=== PATIENT | female | born 2000 | race Caucasian/White ===

== ENCOUNTER → 2020-08-24 | Outpatient (CLI) | payer OTHER | LOC: M LAB 11:15 | PROVIDERS: ATTEND Physician Assistant Medical | DX: Z34.80 Encounter for supervision of other normal pregnancy, unspecified trimester (principal); Z3A.00 Weeks of gestation of pregnancy not specified ==

== ENCOUNTER 2020-09-09 21:18 | Emergency (ER) | payer OTHER ==
[~2020-09-09] VITALS: Ht 160 cm; Wt 74.7 kg
[2020-09-09 21:54] LABS: BASO # 0.1 10^3/uL (0.0-0.2); BASO % 0.6 % (0.0-1.0); EOS # 0.1 10^3/uL (0.0-0.5); EOS % 0.9 % (0.0-3.0); HEMATOCRIT 43.3 % (36.0-47.0); HEMOGLOBIN 14.8 g/dl (12.0-15.5); LYMPH # 1.9 10^3/uL (1.5-5.0); LYMPH % 24.7 % (24.0-44.0); MEAN CORPUSCULAR HGB CONC 34.2 g/dl (32.0-36.5); MEAN CORPUSCULAR VOLUME 87.8 fl (80.0-96.0); MONO # 0.6 10^3/uL (0.0-0.8); MONO % 8.2 % (0.0-5.0); NEUTROPHILS # 5.1 10^3/uL (1.5-8.5); NEUTROPHILS % 65.3 % (36.0-66.0); PLATELET COUNT, AUTOMATED 289 10^3/uL (150-450); RED BLOOD COUNT 4.93 10^6/uL (4.00-5.40); WHITE BLOOD COUNT 7.8 10^3/uL (4.0-10.0)
[2020-09-09 22:33] LABS: BLOOD UREA NITROGEN 8 MG/DL (7-18); CALCIUM LEVEL 9.2 MG/DL (8.5-10.1); CARBON DIOXIDE LEVEL 28 MEQ/L (21-32); CHLORIDE LEVEL 106 MEQ/L (98-107); CREATININE FOR GFR 0.71 MG/DL (0.55-1.30); GLUCOSE, FASTING 77 MG/DL (70-100); HCG, SERUM QUANTITATIVE 6568 MIU/ML; POTASSIUM SERUM 3.5 MEQ/L (3.5-5.1); SODIUM LEVEL 140 MEQ/L (136-145)
--- NOTE | 2020-09-09 23:49 | REPVR ---
PROCEDURE INFORMATION: Exam: US First Trimester, Transabdominal Exam date and time: 09/09/2020 11:17 PM Age: 20 years old Clinical indication: complicated by abdominal or pelvic pain; Lower; First trimester; Gestational age or lmp: 07/27/20; ; Additional info: Abdominal cramping, + preg TECHNIQUE: Imaging protocol: Real-time transabdominal obstetrical ultrasound of the maternal pelvis and a first trimester , less than 14 weeks 0 days, with image documentation. COMPARISON: No relevant prior studies available. FINDINGS: Gestation: At the upper right side of the endometrium is a intrauterine gestational sac. There is good decidual reaction. [place] rump length consistent with 6 weeks 1 day. There is cardiac activity at 122 bpm. This is very early intrauterine gestation . All parameters cannot be assessed therefore a complete survey should be performed at 18-20 weeks gestation. Gestational age (AUA): Correlation with hCG levels would also be important and if there is any discrepancy serial ultrasound should be considered . Right adnexa: The right ovary measures 3.7 cm in length by 2.7 cm in thickness. There is a round echogenic focus probably a hemorrhagic cyst or hemorrhagic corpus luteum. There is vascular flow the right ovary. Left adnexa: The left ovary measures 3.3 cm in length by 1.9 cm in thickness and there is vascular flow. Intraperitoneal space: Trace free fluid. Urinary bladder: Normal appearing urinary bladder. IMPRESSION: 1. Intrauterine gestational sac within the endometrium high in position and to the right. 2. pole estimated at 6 weeks 0 days with cardiac activity 122 bpm. Please see the above comments. Electronically signed by: Kaiden Hirsch On 09/09/2020 23:49:46 PM
[2020-09-10 00:21] VITALS: BP 123/66
== END 2020-09-10 00:28 | disposition home or self-care (01) ==
LOC: M ED 21:18
DX: O99.891 Other specified diseases and conditions complicating pregnancy (principal); O26.891 Other specified pregnancy related conditions, first trimester; Z3A.01 Less than 8 weeks gestation of pregnancy

== ENCOUNTER 2021-03-18 18:42 | Outpatient (CLI) | payer OTHER ==
[~2021-03-18] VITALS: Ht 157.5 cm; Wt 82.4 kg
[2021-03-18 19:18] VITALS: BP 125/65
[2021-03-18] MEDS ORDERED: PRENTAB9 PO (19:20)
[2021-03-18 20:49] VITALS: BP 107/56
--- NOTE | 2021-03-18 21:00 | IPNPDOC ---
Text Note Date of Service The patient was seen on 03/18/21. NOTE 20 yo at 33+3 weeks gestation presented to L&D with the complaint of pelvic cramping and pressure. She reports this started this AM and has been persisting throughout the day. She had intercourse with her this afternoon and it continued after this. She denies any vaginal bleeding, discharge, or leakage of fluid. She endorses movement. She also denies any fevers/chills, SOB, dysuria, n/v, or constipation. Chaperoned by L&D RN Vitals - VSS, afebrile, normotensive, non tachycardic General - AAOX3, sitting up in bed, pleasant and conversant, NAD Abdomen - Gravid uterus, no fundal tenderness Cervix - Cl/thick/high, posterior to digital exam FHR tracing - Cat I with moderate variability, +accels, no decels. Uterine irritability on toco. Bedside TVUS ( anatomy not assessed): Viable SIUP in cephalic presentation. Cervical length >4cm with no dynamic changes or funneling. Labs: UA - unremarkable Cervix closed and cervical length >4cm on TVUS. Reassuring status. UA clean. Low suspicion of labor. Offered repeat cervical exam in 1-2 hours but Ms. Bynum declined and opted to return home. Discharged with return precautions. All questions answered. 45 minutes of patient care DO HOPE Hamilton CHRISTOPHER J. DO Mar 18, 2021 21:00
== END 2021-03-18 20:57 | disposition home or self-care (01) ==
LOC: M LDO 18:42
PROVIDERS: ATTEND Obstetrics & Gynecology
DX: O26.893 Other specified pregnancy related conditions, third trimester (principal); R25.2 Cramp and spasm; Z3A.33 33 weeks gestation of pregnancy
CPT/HCPCS: 59025; 76815; 81001; G0378; G0463

== ENCOUNTER 2021-05-10 14:52 | Inpatient (IN) | payer OTHER ==
[~2021-05-10] VITALS: Ht 160 cm; Wt 85.9 kg
[~2021-05-10 14:52] MED LIST: PRENTAB9 PO
[2021-05-10] MEDS ORDERED: HOME MED LIST COMPLETE! XX SCH (15:05)
[2021-05-10 15:11] VITALS: BP 117/65
[2021-05-10] MEDS ORDERED: LIDOCAINE 1% MDV 20ML VIAL INFIL PRN (15:55)
[2021-05-10] MEDS ORDERED: OXYTOCIN DRIP 30 UNITS in IV 1 EA IV PRN (15:55)
[2021-05-10 16:41] LABS: HEMATOCRIT 42.7 % (36.0-47.0); HEMOGLOBIN 14.3 g/dl (12.0-15.5); MEAN CORPUSCULAR HEMOGLOBIN 29.7 pg (27.0-33.0); MEAN CORPUSCULAR HGB CONC 33.5 g/dl (32.0-36.5); MEAN CORPUSCULAR VOLUME 88.8 fl (80.0-96.0); PLATELET COUNT, AUTOMATED 182 10^3/uL (150-450); RED BLOOD COUNT 4.81 10^6/uL (4.00-5.40); WHITE BLOOD COUNT 9.5 10^3/uL (4.0-10.0)
[2021-05-10 17:29] VITALS: BP 117/72
--- NOTE | 2021-05-10 18:39 | HPEPDOC ---
Obstetrical History & Physical General Date of Admission May 10, 2021 at 14:52 History of Present Illness Ms. Bynum is a 21yo at 41+0 presenting for induction of labor for late term. She denied vb, lof, decreased fm, contractions. she denied a 12 point ROS. 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 history Past Medical History Medical History asthma, anxiety, depression Surgical History: Denies/None Family History Significant Family History: No pertinent family hx Social History Marital Status: Family situation: Spouse/partner home Psychosocial History: No pertinent psych hx * Smoker: non-smoker Alcohol: Denies Drugs: denies Imunizations Tdap status: current Influenza Status: current Allergies Coded Allergies: No Known Allergies (Unverified , 08/21/20) Medications Scheduled No.137/Iron/Folic Acd ( Vitamin Tablet) 1 Each Tablet, 1 TAB PO DAILY Physical Examination Physical Examination GENERAL: Alert and oriented times three. BREAST: . ABDOMEN: Gravid and non-tender to touch. FETUS: Is vertex (VTX) by sterile vaginal examination (SVE), fetus is vertex (VTX) by US HEART RATE: Regular rate and rhythm. LUNGS: Clear to auscultation (CTA). EXTREMITIES: No edema. No clonus. Ceph by US. Vital Signs/I&O Vital Signs Date Time Temp Pulse Resp B/P (MAP) Pulse Ox O2 Delivery O2 Flow Rate FiO2 05/10/21 17:29 76 117/72 (87) 05/10/21 15:11 97.9 18 Room Air Laboratory Data 24H LABS Laboratory Tests 2 05/10/21 15:02: Serology Scanned Report Hepatitis B Testing 05/10/21 16:22: Nucleated Red Blood Cells % (auto) 0.0, Syphilis Serology NONREACTIVE CBC/BMP Laboratory Tests 05/10/21 16:22 Urine Culture: Contaminated Pertinent Laboratoy Data Blood Type: O+ RBC Antibody Screen: Negative HIV: Negative Hepatitis B: Negative Rapid Plasma Reagin: Nonreactive Rubella: Immune Varicella: Immune Chlamydia/Gonorrhea: Negative Group B Streptococcus: Negative Cystic Fibrosis: Negative Glucose Tolerance Test: 104 Anatomy Ultrasound Placenta Location: Posterior Estimated Weight (grams): 3500 Vaginal Examination Dilation: 1cm Effacement: 50% Station: -3 Cervical Consistency: Medium Cervical Position: Posterior Presentation: Cephalic presentation Assessment Heart Rate (FHR): 130 Variability: Moderate Accelerations: Positive Decelerations: None Tocometer Contractions: Yes Frequency: regular Multi-drug resistant Organism: No history of MDRO Assessment/Plan Assessment Ms. Bynum is a 21yo at 41+0 presenting for induction of labor for late term. VS normal. CAT I NST reactive. SVE 1/T/H. DLFB placed. APC 1. anxiety/depression 2. asthma Rh pos, GBS neg, ceph by US, EFW 3500, placenta posterior Plan Admit and orient. 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 Diet: clears Group B Streptococcus (GBS) [negative]. Labs and intravenous (IV) per unit protocol. Counseled on Pitocin and induction of labor (IOL). Lactated Ringers (LR): PRN Anticipate [normal delivery ()]. C-S as appropriate. MARY ALLISON DO May 10, 2021 18:39
[2021-05-11] VITALS (37 sets, daily range): BP systolic 93–130; BP diastolic 53–71
[2021-05-11] MEDS: OXYTOCIN DRIP 30 UNITS in IV 1 EA IV SCH (08:36)
[2021-05-11] MEDS: LR 1,000 ML IV SCH ×2 (08:36→16:06)
[2021-05-11] MEDS ORDERED: OXYTOCIN INJ 10 UNITS/ML VIAL (J2590) IV ONE (09:30)
[2021-05-11] MEDS ORDERED: FENTANYL 2MCG/ML ROPIVACAINE 0.2% IN 0.9% NACL 100ML IVBAG As Ordered ONE (19:57)
[2021-05-11] MEDS ORDERED: EPIDURAL COMMENT XX SCH (20:40)
[2021-05-11] MEDS ORDERED: ePHEDrine SULFATE 25 MG/5 ML(5MG/ML) SYRINGE IV PRN (20:40)
[2021-05-11] MEDS ORDERED: ONDANSETRON 4MG/2ML VIAL IV PRN (20:40)
[2021-05-11] MEDS ORDERED: LACTATED RINGER'S 1000 ML IV PRN (20:40)
[2021-05-11] MEDS ORDERED: NALOXONE INJ 0.4MG/1ML VIAL (J2310 PER 1MG) IV PRN (20:40)
[2021-05-11] MEDS ORDERED: diphenhydrAMINE 50MG/ML VIAL (J1200) IV PRN (20:40)
[2021-05-11] MEDS ORDERED: EPIDURAL/PCA KEYS XX PRN (20:40)
[2021-05-11] MEDS ORDERED: REFRIGERATOR IV KEYS XX PRN (20:40)
[2021-05-11] MEDS: FENTANYL/ROPIVACAINE/NACL BAG 100 ML EPIDURAL SCH (21:33)
[2021-05-12] VITALS (25 sets, daily range): BP systolic 89–123; BP diastolic 52–71
[2021-05-12 06:18] LABS: CORD GAS ABE A -7.1; CORD GAS ABE V -4.8; CORD GAS HCO3 A 21.8 MEQ/L; CORD GAS HCO3 V 19.9 MEQ/L; CORD GAS O2 SAT A 44.5 %; CORD GAS O2 SAT V 80.8 %; CORD GAS PCO2 A 56.9 mmHg; CORD GAS PCO2 V 36.6 mmHg; CORD GAS PH A 7.201 UNITS; CORD GAS PH V 7.354 UNITS; CORD GAS PO2 A 22.9 mmHg; CORD GAS PO2 V 36.4 mmHg; CORD GAS SBC A 17.6 MEQ/L; CORD GAS SBC V 20.1 MEQ/L; CORD GAS TCO2 A 23.5 MEQ/L; CORD GAS TCO2 V 21.1 MEQ/L
[2021-05-12] MEDS ORDERED: METHYLERGONOVINE MALEATE 0.2 MG/ML VIAL (J2210) IM STA (06:19)
[2021-05-12] MEDS ORDERED: FENTANYL 2MCG/ML ROPIVACAINE 0.2% IN 0.9% NACL 100ML IVBAG As Ordered ONE (06:31)
[2021-05-12] MEDS: FENTANYL/ROPIVACAINE/NACL BAG 100 ML EPIDURAL SCH (06:40)
[2021-05-12] MEDS: OXYTOCIN DRIP 30 UNITS in IV 1 EA IV SCH (06:54)
[2021-05-12] MEDS ORDERED: OXYTOCIN 30 UNITS IN 0.9% NaCl 500ML IV BAG (J2590) ONE (07:17)
[2021-05-12] MEDS ORDERED: METHYLERGONOVINE MALEATE 0.2 MG/ML VIAL (J2210) ONE (07:17)
[2021-05-12] MEDS ORDERED: LR 1,000 ML IV SCH (07:20)
[2021-05-12] MEDS ORDERED: DIBUCAINE 1% OINTMENT 30GM TOP PRN (07:20)
[2021-05-12] MEDS ORDERED: ANUSOL HC CREAM 30GM TOP PRN (07:20)
[2021-05-12] MEDS ORDERED: ACETAMINOPHEN TAB 650MG DOSE (2X325MG) PO PRN (07:20)
[2021-05-12] MEDS ORDERED: DOCUSATE SODIUM 100MG CAPSULE PO PRN (07:20)
[2021-05-12] MEDS ORDERED: OXYTOCIN DRIP 30 UNITS in IV 1 EA IV ONE (07:20)
[2021-05-12] MEDS ORDERED: RHOGAM 300 MCG (1500 IU) INJ (J2790) IM SCH (07:20)
[2021-05-12] MEDS ORDERED: ACETAMINOPHEN 500 MG TAB PO PRN (07:20)
[2021-05-12] MEDS ORDERED: MOM 30ML SUSPENSION UDC PO PRN (07:20)
[2021-05-12] MEDS ORDERED: METHYLERGONOVINE MALEATE 0.2 MG TAB PO PRN (07:20)
[2021-05-12] MEDS ORDERED: IBUPROFEN 600MG TAB PO PRN (07:20)
[2021-05-12] MEDS ORDERED: MEASLES,MUMPS,RUBELLA VACCINE INJ (MMR-II) (90707) SC SCH (07:20)
[2021-05-12 07:34] LABS: HEMATOCRIT 39.6 % (36.0-47.0); HEMOGLOBIN 13.5 g/dl (12.0-15.5); MEAN CORPUSCULAR HGB CONC 34.1 g/dl (32.0-36.5); PLATELET COUNT, AUTOMATED 173 10^3/uL (150-450); WHITE BLOOD COUNT 21.5 10^3/uL (4.0-10.0)
[2021-05-12] MEDS: PRENATAL VITAMINS CHEWABLE TABLET PO SCH (09:58)
--- NOTE | 2021-05-12 15:33 | DN ---
DELIVERY NOTE DATE OF DELIVERY: 05/12/2021 DESCRIPTION OF DELIVERY: This lady is a 1, now para 1, was admitted for induction of labor at late term at 41 weeks of gestation. She had a prolonged first and second stage, epidural in place, delivered spontaneously a livebirth male infant weighing 9 lb, 5 oz, 4210 gm, Apgars of 9 and 9 at 1 and 5 minutes respectively. Cord x1 loose and terminal meconium. Arterial pH 7.20, base excess minus 7.1, venous pH 7.35, base excess minus 4.8. The placenta delivered spontaneously thereafter with some delay, three-vessels, membranes and tissues intact. She had an atonic uterus, significant bleed, required Methergine 0.2, misoprostol 1000 mg per rectum and IV Pitocin at 999 per hour plus 5 units of Pitocin IV push at the anterior shoulder. We had significant difficulty in establishing the location of the bleed and because of her lacerations in the vagina especially on the left side and also the first degree tear requiring the vaginal tray and Dr. Montenegro for visualization and suction. We eventually were able to control the bleeding by repairing the lateral vaginal wall and first degree tear with a 2-0 Vicryl on J339. The uterus contracted well down under the misoprostol, the IV Pitocin and the IM Methergine. The cervix itself was normal. The sphincter was tight and closed and the anterior and posterior doyle were good. The total blood loss that was counted was approximately 1100 plus what was in the bucket giving her a total estimate of 1500 to 1800 mL. We initiated a second IV line in case it was necessary and a [place] catheter was left in. She had significant swelling of her labia and the vagina secondary to prolonged pushing of two hours. In summary, we have a late term gestation, had a spontaneous vaginal delivery with hemorrhage controlled with medication. The patient and baby tolerating procedure well. [facility]
[2021-05-12] MEDS: SLF 3 ML SYR IV SCH (22:30)
[2021-05-13] MEDS: SLF 3 ML SYR IV SCH (06:19)
[2021-05-13 06:21] VITALS: BP 115/61
[2021-05-13 06:36] LABS: HEMATOCRIT 29.5 % (36.0-47.0); MEAN CORPUSCULAR HEMOGLOBIN 29.9 pg (27.0-33.0); MEAN CORPUSCULAR HGB CONC 33.9 g/dl (32.0-36.5); MEAN CORPUSCULAR VOLUME 88.3 fl (80.0-96.0); PLATELET COUNT, AUTOMATED 145 10^3/uL (150-450); RED BLOOD COUNT 3.34 10^6/uL (4.00-5.40); WHITE BLOOD COUNT 12.9 10^3/uL (4.0-10.0)
--- NOTE | 2021-05-13 08:36 | IPN ---
PROGRESS NOTE DATE: 05/13/2021 SUBJECTIVE: This lady is a 21-year-old 1, now para 1, admitted for induction of labor at 41 weeks of gestation. She had an epidural placed, spontaneous vaginal delivery male infant, 9 pounds 5 ounces, 4210 gm, Apgars of 9 and 9 at 1 and 5 minutes respectively. Cord x1 with terminal meconium. Arterial pH 7.20, base excess -7.1, venous pH 7.35, base excess -4.8. She had hemorrhage of between 1100 and 1800 mL, did not require blood transfusion. Did start a second IV line, had serial lab work done. Admitting hemoglobin was 14.3, hematocrit 42.7, platelets 182. day one hemoglobin 10.0, hematocrit 29.5, platelets 145 and the patient was asymptomatic. OBJECTIVE: Vital signs presently: Blood pressure 115/61, respirations 18, pulse 82, temp 97.9. The rest of the exam is unremarkable. Normocephalic, atraumatic. Neck full range of motion. Pupils equal and reactive to light. Distal pulse symmetrical. No evidence of DVT, PE or superficial phlebitis. Chest is clear bilaterally to bases, no wheezes, rhonchi. No CVA tenderness. Abdomen is soft, four quadrant bowel sounds noted. Uterus 2 below. Lochia is moderate. Perineum is quite swollen still. However, the repair appears to be intact. No rashes, lesions or pruritus. No arthralgias, myalgias. No complaint of joint pain. No complaint of cough, wheeze, shortness of breath or dyspnea on exertion. No nausea, vomiting, diarrhea or constipation. No urgency or frequency, voiding quite well. Breast feeding is going well. PLAN: Keep the lady one more day because of her extensive repair. supervisor benzene refining her meds at [facility] when discharged tomorrow. 6 week checkup at [facility]. All questions were answered. 20 minute discussion.
--- NOTE | 2021-05-13 08:54 | IPN ---
PROGRESS NOTE DATE: 05/12/2021 This patient requested circumcision of her male . After discussing risks and benefits of the circumcision, the medical and non-medical indications, penile block and aftercare, she expressed understanding of penile block, aftercare and bleeding, signed the consent form. All questions were answered. 20 minute discussion. We await clearance by the direct mail marketer. cc: Judy DEGROOT
[2021-05-13] MEDS: PRENATAL VITAMINS CHEWABLE TABLET PO SCH (10:11)
[2021-05-13 17:38] VITALS: BP 122/64
[2021-05-14 06:00] VITALS: BP 116/58
[2021-05-14] MEDS ORDERED: IBUP-1022 PO (07:05)
[2021-05-14] MEDS ORDERED: ACET-683 PO (07:05)
--- NOTE | 2021-05-14 07:26 | DS.PDOC ---
Discharge Summary General Date of Admission May 10, 2021 at 2:52 pm Date of Discharge 05/14/2021 Discharge Summary PROCEDURES PERFORMED DURING STAY: vaginal delivery, repair of vaginal wall laceration, repair of 1st degree midline laceration ADMITTING DIAGNOSES: 1. Induction of labor at late term DISCHARGE DIAGNOSES: 1. 2. mACROSMIA 3. Postpatum hemorrhage COMPLICATIONS/CHIEF COMPLAINT: Induction. HISTORY OF PRESENT ILLNESS: 21 yo g1 @ 41 weeks admitted for induction of labor at late term. HOSPITAL COURSE: 21-year-old 1, now para 1, admitted for induction of labor at 41 weeks of gestation. She had an epidural placed, spontaneous vaginal delivery male infant, 9 pounds 5 ounces, 4210 gm, Apgars of 9 and 9 at 1 and 5 minutes respectively. Cord x1 with terminal meconium. Arterial pH 7.20, base excess -7.1, venous pH 7.35, base excess -4.8. She had hemorrhage of between 1100 and 1800 mL, did not require blood transfusion. Did start a second IV line, had serial lab work done. Admitting hemoglobin was 14.3, hematocrit 42.7, platelets 182. day one hemoglobin 10.0, hematocrit 29.5, platelets 145 and the patient was asymptomatic. at time of discharge, patient was ambulating, voiding without issues. she had no s/s of anemia. she was bonding well with baby DISCHARGE MEDICATIONS: Please see below. ALLERGIES: Please see below. PHYSICAL EXAMINATION ON DISCHARGE: VITAL SIGNS: Please see below. GENERAL: well appearing CARDIOVASCULAR EXAMINATION:regular rate and rhythm RESPIRATORY EXAMINATION: normal work of breathing ABDOMINAL EXAMINATION: appropriately tender, Fundus at u-1 EXTREMITIES: grossly normal. no ray sign LABORATORY DATA: Please see below. IMAGING: n/a PROGNOSIS: excellent ACTIVITY: As tolerated, pelvic rest for 6 weeks . DIET: regular DISCHARGE PLAN: discharge DISPOSITION: .home DISCHARGE INSTRUCTIONS: 1. Given by nursing ITEMS TO FOLLOWUP ON ON OUTPATIENT: 1. 6 weeks PP DISCHARGE CONDITION: Stable. TIME SPENT ON DISCHARGE: 60minutes. Vital Signs/I&Os Vital Signs Date Time Temp Pulse Resp B/P (MAP) Pulse Ox O2 Delivery O2 Flow Rate FiO2 05/14/21 06:00 98.2 86 16 116/58 (77) 98 Room Air I&O- Last 24 Hours up to 6 AM 05/14/21 06:00 Intake Total 800 ml Balance 800 ml Discharge Medications Scheduled PRN Acetaminophen (Acetaminophen) 500 Mg Tablet, 1,000 MG PO Q6HP PRN for PAIN LEVEL 6-10 Ibuprofen (Ibuprofen) 600 Mg Tablet, 600 MG PO Q6HP PRN for PAIN LEVEL 1-5 Allergies Coded Allergies: No Known Allergies (Unverified , 08/21/20) JUAN BOND MD May 14, 2021 07:09
[2021-05-14] MEDS: PRENATAL VITAMINS CHEWABLE TABLET PO SCH (09:00)
== END 2021-05-14 11:20 | disposition home or self-care (01) | DRG 806 ==
LOC: M LDI 14:52 → M OBS 05-12 10:00
PROVIDERS: ADMIT Obstetrics & Gynecology; ATTEND Obstetrics & Gynecology
PROC: 3E033VJ Introduction of Other Hormone into Peripheral Vein, Percutaneous Approach (ICD-10-PCS; 2021-05-10)
PROC: 10E0XZZ Delivery of Products of Conception, External Approach (ICD-10-PCS; principal; 2021-05-12)
PROC: 0HQ9XZZ Repair Perineum Skin, External Approach (ICD-10-PCS; 2021-05-12)
DX: O48.0 Post-term pregnancy (principal); Z37.0 Single live birth; O72.1 Other immediate postpartum hemorrhage; Z3A.41 41 weeks gestation of pregnancy; O63.0 Prolonged first stage (of labor); O63.1 Prolonged second stage (of labor); O77.0 Labor and delivery complicated by meconium in amniotic fluid; O69.81X0 Labor and delivery complicated by cord around neck, without compression, not applicable or unspecified; O70.0 First degree perineal laceration during delivery; O36.63X0 Maternal care for excessive fetal growth, third trimester, not applicable or unspecified

== ENCOUNTER 2021-05-21 23:00 | Emergency (ER) | payer OTHER ==
[~2021-05-21] VITALS: Ht 160 cm; Wt 75.9 kg
[~2021-05-21 23:00] MED LIST changes: +ACET-683 PO; +IBUP-1022 PO
[2021-05-21 23:01] VITALS: BP 118/67
== END 2021-05-22 00:49 | disposition left against medical advice (07) ==
LOC: M ED 23:00
DX: Z53.21 Procedure and treatment not carried out due to patient leaving prior to being seen by health care provider (principal)

== ENCOUNTER → 2024-04-27 | Outpatient (CLI) | payer OTHER | LOC: M LRY 09:03 | PROVIDERS: ATTEND Nurse Practitioner Family | DX: R19.7 Diarrhea, unspecified (principal) ==

== ENCOUNTER → 2024-04-27 | Outpatient (REF) | payer OTHER | LOC: M LAB REF 11:14 | PROVIDERS: ATTEND Nurse Practitioner Family | DX: R19.7 Diarrhea, unspecified (principal) ==

== ENCOUNTER 2024-12-27 07:37 | Day surgery (SDC) | payer OTHER ==
[~2024-12-27] VITALS: Ht 157.5 cm; Wt 83.4 kg
[~2024-12-27 07:37] MED LIST changes: +CETACAINE SPRAY 5GM As Ordered ONE; +METF500T13 PO
[2024-12-27] MEDS ORDERED: LIDOCAINE 2% 100MG/5ML SDV (FOR ANES.) As Ordered ONE (09:23)
[2024-12-27] MEDS ORDERED: propofoL 200 MG/20 ML VIAL As Ordered ONE (09:23)
[2024-12-27 09:29] VITALS: TEMP 98.4
[2024-12-27 09:45] VITALS: BP 112/60; O2SAT 100
== END 2024-12-27 09:53 | disposition home or self-care (01) ==
LOC: M OPP 07:37
PROVIDERS: ATTEND Internal Medicine Gastroenterology
DX: K64.8 Other hemorrhoids (principal); Q43.8 Other specified congenital malformations of intestine; R19.4 Change in bowel habit; Z83.710 Family history of adenomatous and serrated polyps; J45.909 Unspecified asthma, uncomplicated

== ENCOUNTER 2025-01-09 19:22 | Emergency (ER) | payer OTHER ==
[~2025-01-09] VITALS: Ht 160 cm; Wt 84.8 kg
[~2025-01-09 19:22] MED LIST changes: -CETACAINE SPRAY 5GM As Ordered ONE
[2025-01-09 19:30] VITALS: BP 140/81; TEMP 98.7; O2SAT 99
== END 2025-01-09 21:51 | disposition left against medical advice (07) ==
LOC: M ED 19:22
DX: Z53.21 Procedure and treatment not carried out due to patient leaving prior to being seen by health care provider (principal)

== ENCOUNTER 2025-04-30 13:59 | Emergency (ER) | payer OTHER ==
[~2025-04-30] VITALS: Ht 160 cm; Wt 84.0 kg
[~2025-04-30 13:59] MED LIST changes: -IBUP-1022 PO; +IBUP600T42 PO
[2025-04-30] MEDS ORDERED: SERT50TA29 (14:07)
[2025-04-30] MEDS ORDERED: JOLETAB (14:07)
[2025-04-30 14:33] LABS: BASO # 0.1 10^3/uL (0.0-0.2); BASO % 1.0 % (0.0-1.0); EOS # 0.1 10^3/uL (0.0-0.5); EOS % 1.3 % (0.0-3.0); LYMPH # 1.6 10^3/uL (1.5-5.0); LYMPH % 26.2 % (24.0-44.0); MONO # 0.5 10^3/uL (0.0-0.8); MONO % 8.0 % (2.0-8.0); NEUTROPHILS # 3.9 10^3/uL (1.5-8.5); NEUTROPHILS % 63.3 % (36.0-66.0); PLATELET COUNT, AUTOMATED 243 10^3/uL (150-450)
[2025-04-30 14:45] LABS: INR 1.1
[2025-04-30 15:01] LABS: ALT/SGPT 18 U/L (7.0-40); AST/SGOT 14 U/L (<34); CALCIUM LEVEL 9.4 MG/DL (8.5-10.1); CARBON DIOXIDE LEVEL 29 MMOL/L (20-31); CHLORIDE LEVEL 105 MMOL/L (98-107); CREATININE FOR GFR 0.70 MG/DL (0.55-1.30); GLOMERULAR FILTRATION RATE > 90.0 (>60); HCG, SERUM QUANTITATIVE < 2.6 MIU/ML (<4.2); POTASSIUM SERUM 4.1 MMOL/L (3.5-5.1); SODIUM LEVEL 144 MMOL/L (136-145)
[2025-04-30 15:03] LABS: THYROXINE (T4) 8.7 UG/DL (4.5-10.9)
[2025-04-30] MEDS ORDERED: ISOVUE-370 76% 100 ML VIAL As Ordered ONE (15:38)
[2025-04-30 17:39] VITALS: TEMP 98.8
[2025-04-30 20:00] VITALS: BP 115/70; O2SAT 99
== END 2025-04-30 20:15 | disposition home or self-care (01) ==
LOC: M ED 13:59
DX: R20.2 Paresthesia of skin (principal); N28.1 Cyst of kidney, acquired; J98.11 Atelectasis; F41.9 Anxiety disorder, unspecified; F32.A Depression, unspecified; J45.909 Unspecified asthma, uncomplicated; Z79.899 Other long term (current) drug therapy
CPT/HCPCS: 36415; 70496; 70498; 71045; 71275; 80048; 80076; 84436; 84443; 84702; 85025; 85610; 93005; 93880; 93971; 99284; Q9967